=== PATIENT | male | born 1955 | race Caucasian/White ===

== ENCOUNTER 2019-09-30 16:07 | Outpatient (CLI) | payer MEDICAID, SELFPAY ==
--- NOTE | 2019-10-04 17:53 | ONC FU_ITS ---
Dr. Berry Patient Follow-Up Note Patient: Cholo Aden Unit #: [id number]: 1955 Dicatated By: Keon Berry M.D.Date of Visit:Sep 30, 2019 Telehealth Progress Note The patient has been informed that the visit may not be secure and acknowledged the information. I have explained the option of participating in a telephone or video visit during the [facility] emergency to the patient. After being given an opportunity to ask questions about and discuss this type of visit, the patient verbally consented to proceeding with the telephone/video visit. the patient understands that this service replaces an office visit and they may be billed and /or responsible for any applicable copayments Chief Complaint: Colon cancer/secondary polycythemia. History of Present Illness: This is a 64 year-old man with multiple colon cancers in association with MUTYH-associated polyposis. He also has been diagnosed with secondary polycythemia. He had been seen here by Dr. Valeria Perez on 07/17/2013 after having undergone total colectomy with ileorectal anastomosis on 08/28/2012 for carcinoma involving the transverse colon. The procedure also included repair of ventral hernia with mesh. It was complicated by intra-abdominal hemorrhage, requiring exploratory laparotomy on 08/30/2012. Pathology showed moderately differentiated adenocarcinoma with invasion through the muscularis propria with focal invasion of the mesocolonic adipose tissue. Margins were uninvolved. There was no involvement in 28 lymph nodes. Final staging was IIA (T3, N0, M0). He received no adjuvant therapy. He had previously undergone sigmoid colon resection in 1997 and a right colon resection in 2003 for colon cancers. Both of those procedures had been done in [facility] and records were not available. He received no adjuvant therapy. His CT abdomen/pelvis on 07/29/2013 showed a mosaic perfusion pattern of the lower lungs, consistent with airway disease. There was increase in size of a right lower abdominal mesenteric mass, consistent with desmoid tumor or carcinoid. There was no evidence of metastatic involvement. On his subsequent surveillance CT scans the mesenteric mass remained stable. On a repeat study from 04/27/2018, the mass measured 12 x 10 mm. An additional adjacent satellite lesion along the right psoas muscle measuring 1.7 x 1.5 x 2.2 cm appeared stable compared to the 2017 study. There was enlarged heterogeneously enhancing prostate measuring 4.5 x 3.9 cm. There was again no evidence of metastatic involvement. At the time of his evaluation in June 2013 he also had elevated hemoglobin/hematocrit levels with his CBC showing a hemoglobin of 17.1 g with hematocrit 52.5%. The white blood cell count was 7600 and the platelet count was 163,000. His comprehensive metabolic profile was unremarkable except for elevated nonfasting blood sugar. Serum iron studies showed normal transferrin saturation at 28.9% with ferritin 62.1 ng/mL. LDH was normal 150 U/L. His B12 and folate levels were both borderline low. His CEA was slightly elevated at 5.3 ng/mL. The JAK2 V617F mutation was not detected, and the FISH for BCR/abl was negative. His erythropoietin level was normal at 12 mIU/mL. The findings were consistent with secondary polycythemia. His repeat laboratory studies from 04/03/2018 included CBC showing hemoglobin 18.4 g with hematocrit 55%. The white blood cell count was 7100 and the platelet count was 142,000. Chem profile showed borderline renal function with BUN 9 and creatinine 1.23 mg/dL. Potassium was slightly high at 5.6 mmol/L. The bilirubin and liver enzymes were normal. TSH was normal at 2.940 mIU/mL. The hemoglobin A1c was 7.9%. I had seen him for a followup visit on 05/07/2018. At that point he appeared stable clincally and I recommended continued observation/expectant management. His other medical illnesses include hypertension, hyperlipidemia, type II diabetes, GERD, and benign prostatic hypertrophy. He has a history of nephrolithiasis. He also has a history of portacath associated deep vein thrombosis. He has a history of smoking for 30 years, less than 1 pack of cigarettes daily. He quit smoking 10 years ago. INTERIM HISTORY: I had seen him for a follow-up visit on 08/08/2018. He appeared stable clinically, but his CEA level had increased to 10.0 ng/mL. Restaging CT scans of the chest, abdomen, and pelvis on 08/22/2018 showed stable right lower quadrant and right so as soft tissue masses compared to the prior study from March 2018. There was slight increase, though, compared to the October 2016 study. There was otherwise no evidence of recurrent or metastatic disease. There was groundglass attenuation noted throughout both lungs, consistent with small vessel disease. He continued on observation/expectant management. He is seen for a followup visit by Telehealth. He has been feeling good generally. His energy has been good. He has normal activity. Appetite is good. His weight is stable. He has no fever or night sweats. He has sinus congestion/drainage. It is managed adequately with fluticasone nasal spray. He has cough productive of yellow sputum. He does not have shortness of breath or chest pain. He currently has no GI or complaints. He has some joint pain in his hands and feet. He does not complain of headache, and he has no focal neurologic symptoms. Medications: Aspirin 1 (81 mg) Tablet Oral daily, Cetirizine HCl Tablet Oral PRN, Cholecalciferol 1 (4000 Units) Capsule Oral daily, FeroSul (325 (65 fe) mg) Tablet Oral daily, Finasteride 1 (5 mg) Tablet Oral daily, Fish Oil Concentrate (300 mg) Capsule Oral daily, Fluticasone Propionate 2 spray(s) (of 50 mcg/act) Suspension Nasal daily, Folic Acid 1 (1 mg) Tablet Oral daily, HumaLOG KwikPen Subcutaneous, Lisinopril 1 (10 mg) Tablet Oral daily, Pravastatin Sodium 1 (10 mg) Tablet Oral at bedtime, RaNITidine HCl 1 (150 mg) Tablet Oral b.i.d., Sucralfate 1 (1 G) Tablet Oral t.i.d., Tamsulosin HCl 1 (0.4 mg) Capsule Oral daily, Tresiba FlexTouch 60 Units (of 60 Units - mg/mL) Subcutaneous daily, Vitamin B-Complex 1 Tablet Oral daily Allergies: No Known Allergies. Review of Systems: Constitutional - He has been feeling good. His energy level is good. He does daily exercising and he has normal activity. His appetite is good and weight is stable. No fever, night sweats, or hot flashes. ECOG score is 0, ENMT - He has chronic sinus congestion/drainage. It is adequately managed with daily nasal sprays. No mouth sores. No sore throat. He has some intermittent difficulty swallowing. It is being evaluated by his PCP, Hematologic/Lymphatic - No abnormal bruising or bleeding, Respiratory - No shortness of breath. He has a chronic cough that produces yellow sputum. No pleuritic pain or hemoptysis, Cardiovascular - No angina pain. No palpitations, Gastrointestinal - No nausea or vomiting. No heartburn or acid reflux. No diarrhea or constipation. No blood in the stool or black stools, Genitourinary (M) - No dysuria or hematuria. No urinary frequency. No urgency or incontinence, Musculoskeletal - He is having intermittent pain in his feet. He manages it adequately with Tylenol, Integumentary - No skin complications, Neurologic - No headache or dizziness. No numbness or tingling. No other focal neurologic symptoms, Psychiatric - No anxiety or depression. No insomnia. Physical Examination: Constitutional - He looks pretty good generally. Lab/Imaging: CBC shows hemoglobin 16.9 g with hematocrit 50.5%. The white blood cell count is 9500 and the platelet count is 140,000. Comprehensive metabolic profile shows normal renal function with BUN 10 and creatinine 1.0 mg/dL. The SGOT is minimally elevated at 43/41 U/L. The bilirubin and other liver enzymes are normal. CEA is down slightly at 9.7 ng/mL. Impression: 1. Patient with MUTYH associated polyposis, and he has had multiple colon cancers. 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 He underwent total colectomy with ileorectal anastomosis in 2012. He received no adjuvant therapy. 2. He previous included sigmoid colon resection in 1997 and right colon resection in 2003, both for colon cancer. 3. He has had CT evidence of mesenteric mass consistent with desmoid tumor or carcinoid. 4. He has elevated hemoglobin/hematocrit levels. His previous evaluation was consistent with secondary polycythemia. It is uncertain to what extent it may be due to lung disease or to decreased plasma volume. There have been no findings to suggest polycythemia rubra vera. His other medical illnesses include: 5. Hypertension. 6. Hyperlipidemia. 7. Type II diabetes. 8. GERD. 9. History of nephrolithiasis. 10. He has history of iron deficiency anemia associated with his colon cancer. 11. Benign prostatic hypertrophy. As of his follow-up visit in July 2018 his CEA level had increased significantly, to 10.0 ng/mL. Restaging CT scans showed stable right lower quadrant and right psoas soft tissue masses compared to the March 2018 study. There was a slight increase in size compared to the October 2016 study. He continued observation/expectant management. During subsequent followup his clinical status and CEA have remained stable. Overall, he appears to be doing well with no evidence of recurrence of the colon cancer. Plan: He remains on observation/expectant management. I will see him again in 6 months. Signed By: Keon Berry M.D. <<Signature on File>>
== END 2019-09-30 16:08 | disposition home or self-care (01) ==
LOC: ONCMED 16:08
PROVIDERS: PCP Family Medicine; Visit Provider Internal Medicine Medical Oncology
DX: Z08 Encounter for follow-up examination after completed treatment for malignant neoplasm (principal); Z85.038 Personal history of other malignant neoplasm of large intestine; D75.1 Secondary polycythemia; Z90.49 Acquired absence of other specified parts of digestive tract; I10 Essential (primary) hypertension; E78.5 Hyperlipidemia, unspecified; E11.9 Type 2 diabetes mellitus without complications; K21.9 Gastro-esophageal reflux disease without esophagitis; N40.0 Benign prostatic hyperplasia without lower urinary tract symptoms; Z15.09 Genetic susceptibility to other malignant neoplasm; Z87.442 Personal history of urinary calculi; Z86.2 Personal history of diseases of the blood and blood-forming organs and certain disorders involving the immune mechanism

== ENCOUNTER 2019-10-22 10:47 | Outpatient (CLI) | payer MEDICAID, SELFPAY ==
--- NOTE | 2019-10-22 10:50 | US_ITS ---
WS: [id number] THYROID ULTRASOUND HISTORY: HYPOTHYROID COMPARISON: None available. Right lobe: 4.2 cm x 1.3 cm x 1.5 cm. Volume: 4.0 cm3. Normal size and echotexture. No significant are dominant nodules are present. Left lobe: 3.7 cm x 1.4 cm x 1.5 cm. Volume: 4.1 cm3. Normal size lobe. Small colloid cysts with the largest measuring 5 mm in the superior gland. Isthmus: 0.3 cm. US/US thyroid 31013 IMPRESSION: 1. No suspicious or solid nodule. 2. Subcentimeter colloid cyst LEFT thyroid.
== END 2019-10-22 10:48 | disposition home or self-care (01) ==
LOC: RAD 10:47
PROVIDERS: PCP Internal Medicine; Visit Provider Internal Medicine
DX: E03.9 Hypothyroidism, unspecified (principal); E04.1 Nontoxic single thyroid nodule; C18.9 Malignant neoplasm of colon, unspecified
CPT/HCPCS: 76536; 80053; 82378; 85025

== ENCOUNTER 2020-07-27 13:13 | Outpatient (CLI) | payer MEDICAID, SELFPAY ==
--- NOTE | 2020-07-27 13:24 | CT_ITS ---
WS: [id number] CT ABDOMEN PELVIS TECHNIQUE: Noncontrast CT of the abdomen and pelvis with coronal and sagittal reformatted images. CLINICAL INFORMATION: COLON CANCER COMPARISON: CT DLP: 805.[address] scans at [facility] use at least one of these dose optimization techniques: automat ed exposure control; mA and/or kV adjustment per patient size (includes targeted exams where dose is matched to clinical indication); or iterative reconstruction. FINDINGS: Prior postoperative changes subtotal colectomy with ileal rectosigmoid anastomosis. Again seen is the right lower quadrant soft tissue mass slightly progressed since today measuring 3.2 x 3.4 x 7.1 cm AP by transverse by craniocaudal. By my measurements on November 06, 2018 this measured approximat cedrick 2.5 x 3.1 x 4.8 cm. This directly abuts the right psoas not significantly changed in appearance.S table right mid mesenteric nodule previously described measuring 8 mm is unchanged Noncontrast liver is normal. Cholelithiasis. Noncontrast spleen is normal. Normal GE junction. Slight atelectasis in the lung bases. Adrenal glands are normal. No hydronephrosis. Normal noncontrast panc reas. Mild aortic calcification. Normal caliber abdominal aorta. Mild disc space narrowing L5-S1. No other significant changes from previous. CT/CT abdomen pelvis wo con [id number] IMPRESSION: 1. Soft tissue mass in the right lower quadrant extending along the psoas has progressed slightly since today measuring 3.2 x 3.4 x 7.1 cm AP by enrique sverse by craniocaudal. By my measurements previously measured approximately 2. 5 x 3.1 x 4.8 cm AP by transverse by craniocaudal 2. Stable right mid mesenteric nodule previously described measuring 8 mm is u nchanged 3. No other significant interval change from previous. 4. Cholelithiasis. 5. Prior subtotal colectomy with stable rectosigmoid anastomosis. 6. Diffuse fatty infiltration of the liver. 7. Mild prostate enlargement.
[2020-07-27] MEDS: iohexol 300 mg/mL 50 mL Btl PO (13:25)
== END 2020-07-27 13:14 | disposition home or self-care (01) ==
LOC: RADWPI 13:17
PROVIDERS: PCP Internal Medicine; Visit Provider Internal Medicine
DX: C18.9 Malignant neoplasm of colon, unspecified (principal); N40.0 Benign prostatic hyperplasia without lower urinary tract symptoms; K76.0 Fatty (change of) liver, not elsewhere classified; K63.89 Other specified diseases of intestine; K80.20 Calculus of gallbladder without cholecystitis without obstruction
CPT/HCPCS: 74176; Q9967

== ENCOUNTER 2020-07-29 13:47 | Outpatient (CLI) | payer MEDICAID, SELFPAY ==
[2020-07-29 14:41] LABS: Basophils # 0.1 10^3/uL (0.0-0.1); Basophils % 0.6 %; Eosinophils # 0.4 10^3/uL (0.0-0.8); Eosinophils % 4.2 %; Hematocrit 45.3 % (42.0-52.0); Hemoglobin 14.7 g/dL (11.7-16.6); Lymphocytes # 2.1 10^3/uL (0.8-4.8); Lymphocytes % 24.6 %; Mean Corpuscular HGB Conc 32.5 g/dL (30.0-36.0); Mean Corpuscular Hemoglobin 27.8 pg (28.0-34.0); Mean Corpuscular Volume 85.8 fL (80-94); Mean Platelet Volume 10.4 fL (7.4-10.4); Monocytes # 0.7 10^3/uL (0.2-0.9); Monocytes % 8.2 %; Neutrophils % 61.9 %; Nucleated Red Blood Cells % 0 %; Platelet Count 212 10^3/cmm (130-400); Red Blood Count 5.28 10^6/uL (4.1-5.3); Red Cell Distribution Width 12.9 % (12.1-15.1); White Blood Count 8.4 10^3/uL (4.0-10.0)
[2020-07-29 15:06] LABS: Alanine Aminotransferase 13 U/L (0-41); Albumin Level 3.6 g/dL (3.5-5.2); Alkaline Phosphatase 89 IU/L (40-130); Anion Gap 13.8 (5-19); Aspartate Amino Transferase 12 U/L (0-40); Blood Urea Nitrogen 10 mg/dL (8-23); Calcium 9.3 mg/dL (8.5-10.5); Carbon Dioxide 22 mmol/L (22-29); Chloride 102 mmol/L (98-107); Globulin 3.5 g/dL (1.3-4.6); Glomerular Filtration Rate 75.5 mL/min (90-130); Glucose 267 mg/dL (65-115); Osmolality Calculated 284 mOsm/kg (285-295); Potassium 4.8 mmol/L (3.5-5.1); Sodium 133 mmol/L (136-145); Total Bilirubin 0.2 mg/dL (0.15-1.2); Total Protein 7.1 g/dL (6.6-8.7)
--- NOTE | 2020-07-29 17:10 | ONC FU_ITS ---
Dr. Berry Patient Follow-Up Note Patient: Cholo Aden Unit #: [id number]: 1955 Dicatated By: Keon Berry M.D.Date of Visit:Jul 29, 2020 Onc Med Follow-up/Prog Note Chief Complaint: Colon cancer/secondary polycythemia. History of Present Illness: This is a 65 year-old man with multiple colon cancers in association with MUTYH-associated polyposis. He also has been diagnosed with secondary polycythemia. He had been seen here by Dr. Valeria Perez on 07/17/2013 after having undergone total colectomy with ileorectal anastomosis on 08/28/2012 for carcinoma involving the transverse colon. The procedure also included repair of ventral hernia with mesh. It was complicated by intra-abdominal hemorrhage, requiring exploratory laparotomy on 08/30/2012. Pathology showed moderately differentiated adenocarcinoma with invasion through the muscularis propria with focal invasion of the mesocolonic adipose tissue. Margins were uninvolved. There was no involvement in 28 lymph nodes. Final staging was IIA (T3, N0, M0). He received no adjuvant therapy. He had previously undergone sigmoid colon resection in 1997 and a right colon resection in 2003 for colon cancers. Both of those procedures had been done in [facility] and records were not available. He received no adjuvant therapy. His CT abdomen/pelvis on 07/29/2013 showed a mosaic perfusion pattern of the lower lungs, consistent with airway disease. There was increase in size of a right lower abdominal mesenteric mass, consistent with desmoid tumor or carcinoid. There was no evidence of metastatic involvement. At the time of his evaluation in June 2013 he also had elevated hemoglobin/hematocrit levels with his CBC showing a hemoglobin of 17.1 g with hematocrit 52.5%. The white blood cell count was 7600 and the platelet count was 163,000. His comprehensive metabolic profile was unremarkable except for elevated nonfasting blood sugar. Serum iron studies showed normal transferrin saturation at 28.9% with ferritin 62.1 ng/mL. LDH was normal 150 U/L. His B12 and folate levels were both borderline low. His CEA was slightly elevated at 5.3 ng/mL. The JAK2 V617F mutation was not detected, and the FISH for BCR/abl was negative. His erythropoietin level was normal at 12 mIU/mL. The findings were consistent with secondary polycythemia. On his subsequent surveillance CT scans the mesenteric mass remained stable. On a repeat study from 04/27/2018, the mass measured 12 x 10 mm. An additional adjacent satellite lesion along the right psoas muscle measuring 1.7 x 1.5 x 2.2 cm appeared stable compared to the 2016 study. There was enlarged heterogeneously enhancing prostate measuring 4.5 x 3.9 cm. There was again no evidence of metastatic involvement. I had seen him for a follow-up visit on 08/08/2018. He appeared stable clinically, but his CEA level had increased to 10.0 ng/mL. Restaging CT scans of the chest, abdomen, and pelvis on 08/22/2018 showed stable right lower quadrant and right psoas soft tissue masses compared to the prior study from March 2018. There was slight increase, though, compared to the October 2016 study. There was otherwise no evidence of recurrent or metastatic disease. There was groundglass attenuation noted throughout both lungs, consistent with small vessel disease. He continued on observation/expectant management. His other medical illnesses include hypertension, hyperlipidemia, type II diabetes, GERD, and benign prostatic hypertrophy. He has a history of nephrolithiasis. He also has a history of portacath associated deep vein thrombosis. He has a history of smoking for 30 years, less than 1 pack of cigarettes daily. He quit smoking 10 years ago. INTERIM HISTORY: As of his follow-up visit in August 2019 he appeared stable clinically, and his CEA remained stable at 9.7 ng/mL. He had seen Dr. Byrd for a follow-up visit on 06/29/2020. At that time he complained of left lower quadrant abdominal pain. CEA had come down a little, to 8.6 ng/mL. His repeat CT abdomen/pelvis on 07/27/2020 showed slight progression of the soft tissue mass in the right lower quadrant extending along the psoas muscle measuring 3.2 x 3.4 x 7.1 cm compared to 2.5 x 3.1 x 4.8 cm in October 2018. A right mid mesenteric nodule remained stable measuring 8 mm. There were no other interval changes. He is seen for a follow-up visit. For the past 3 months he has been having abdominal pain in the left lower quadrant area. It is fairly constant but it gets worse after he eats. He also has been feeling more tired. He does quite a bit of walking, but he otherwise does not have much activity. ECOG score is 2. His appetite has not been as good and his weight is down about 5 pounds. He does not have fever or night sweats. He has no shortness of breath, cough, or chest pain. He has not been having nausea. He does report having gas problems and acid symptoms. These have persisted despite treatment with a PPI. Bowel function has been okay, though he has tended to have 3-4 loose stools daily since his colectomy. He has no complaints. He has pain in his knees and legs. He sometimes has headache. He has no focal neurologic symptoms. Medications: Aspirin 1 (81 mg) Tablet Oral daily, Cetirizine HCl Tablet Oral PRN, Cholecalciferol 1 (4000 Units) Capsule Oral daily, FeroSul (325 (65 fe) mg) Tablet Oral daily, Finasteride 1 (5 mg) Tablet Oral daily, Fish Oil Concentrate (300 mg) Capsule Oral daily, Fluticasone Propionate 2 spray(s) (of 50 mcg/act) Suspension Nasal daily, Folic Acid 1 (1 mg) Tablet Oral daily, HumaLOG KwikPen Subcutaneous, Lisinopril 1 (10 mg) Tablet Oral daily, Pravastatin Sodium 1 (10 mg) Tablet Oral at bedtime, RaNITidine HCl 1 (150 mg) Tablet Oral b.i.d., Sucralfate 1 (1 G) Tablet Oral t.i.d., Tamsulosin HCl 1 (0.4 mg) Capsule Oral daily, Tresiba FlexTouch 60 Units (of 60 Units - mg/mL) Subcutaneous daily, Vitamin B-Complex 1 Tablet Oral daily Allergies: No Known Allergies. Vital Signs: Performed on Jul 29, 2020 15:21 Height - 68.00 in Weight - 170.2 lbs (LOW) BSA - 1.91 sq.m BMI - 25.88 Temperature - 97.0 F (LOW) Pulse - 66 /min Respiration - 18 /min BP - 112/72 mm(hg) O2 Sat - 98 % Pain - 7 Fatigue - 7 Physical Examination: Constitutional - He looks pretty good generally, Eyes - Sclerae nonicteric. Conjunctivae clear, ENMT - No lesions noted in the oral cavity, Hematologic/Lymphatic - No cervical, clavicular, or axillary adenopathy, Respiratory - Lungs are clear with good air movement bilaterally, Cardiovascular - Heart rhythm is regular. There is no murmur, gallop, or rub noted, Abdomen - Mildly distended but soft. Liver and spleen are not enlarged. There is no abdominal mass or ascites noted and there is no inguinal adenopathy, Extremities - No edema, Neurologic - No focal neurologic deficits noted. Lab/Imaging: Test performed on Jun 29, 2020 08:35 Cholesterol, Total 146 mg/dL Glucose 152 mg/dL BUN 11 mg/dL HDL Cholesterol 35 mg/dL Creatinine 1.30 mg/dL LDL Cholesterol 87 mg/dL Cr Clearance (Est) 67.28 mL/min VLDL Cholesterol 24 mg/dL Triglycerides 136 mg/dL Sodium 136 mmol/L Potassium 5.5 mmol/L Chloride 102 mmol/L CO2 20 mmol/L Calcium 9.7 mg/dL Protein, Total 7.2 g/dL Albumin 4.2 g/dL Globulin 3.0 g/dL Bilirubin, Total 0.4 mg/dL Alkaline Phosphatase 83 IU/L AST (SGOT) 14 IU/L ALT (SGPT) 13 IU/L Hemoglobin A1C 8.4 % WBC 9.0 10^9/L RBC 5.72 10^12/L HGB 16.0 g/dL HCT 48.6 % MCV 85 fl MCH 28.0 pg MCHC 32.9 g/dL RDW 13.1 % Platelet Count 203 10^9/L Neutrophils (Gran) 5.4 10^9/L Lymphocytes 2.3 10^9/L Monocytes 1.1 10^9/L Eosinophils 0.2 10^9/L Basophils 0.1 10^9/L Manual Lymphocytes 25 % Manual Monocytes 12 % Manual Eosinophils 3 % Manual Basophils 1 % CEA 8.6 ng/mL Problem List: 1. Patient with MUTYH associated polyposis and multiple colon cancers. He underwent sigmoid colon resection for colon cancer in 1997 and right colon resection for colon cancer in 2003. 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 He received no adjuvant therapy. 2. He had CT evidence of mesenteric mass which was felt to be consistent with desmoid tumor or carcinoid. 3. He had elevated hemoglobin/hematocrit levels. His evaluation was consistent with secondary polycythemia. 4. Hypertension. 5. Hyperlipidemia. 6. Type II diabetes. 7. GERD. 8. History of nephrolithiasis. 9. He has history of iron deficiency anemia associated with his colon cancer. 10. Benign prostatic hypertrophy. Problems Addressed with this Encounter and Plan: 1. Patient with MUTYH associated polyposis and multiple colon cancers. He underwent sigmoid colon resection in 1997 and right colon resection in 2003. 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 He received no adjuvant therapy. He had CT evidence of mesenteric mass which was initially felt to be consistent with desmoid tumor or carcinoid. He was followed expectantly. As of his follow-up visit in July 2018 his CEA level had increased significantly, to 10.0 ng/mL. Restaging CT scans showed stable right lower quadrant and right psoas soft tissue masses compared to a March 2018 study. There was a slight increase in size compared to the October 2016 study. During subsequent followup his CEA levels have remained stable. His clinical status had previously been stable, but for the past 3 months he has had persistent abdominal pain in the left lower quadrant area. His current CT scan does show some increase in the right lower quadrant soft tissue mass extending along the psoas muscle. It is uncertain to what extent the mass may be associated with his pain. However, it does appear more suspicious now for a slow-growing tumor. As such, he will be scheduled for restaging PET/CT. He will have further evaluation as indicated. 2. He has had elevated hemoglobin/hematocrit levels. His previous evaluation was consistent with secondary polycythemia, though it was uncertain to what extent it may have been due to lung disease or to decreased plasma volume. There were no findings to suggest polycythemia rubra vera. His recent blood counts have been in normal range. It will just be followed expectantly. Signed By: Keon Berry M.D. <<Signature on File>>
[2020-07-29 21:38] LABS: Carcinoembryonic Antigen 8.7 ng/mL (0.0-4.7)
== END 2020-07-29 13:48 | disposition home or self-care (01) ==
PROVIDERS: PCP Internal Medicine; Visit Provider Internal Medicine Medical Oncology
DX: C18.4 Malignant neoplasm of transverse colon (principal); D75.1 Secondary polycythemia; D69.6 Thrombocytopenia, unspecified; I82.729 Chronic embolism and thrombosis of deep veins of unspecified upper extremity; I10 Essential (primary) hypertension; E78.5 Hyperlipidemia, unspecified; E11.9 Type 2 diabetes mellitus without complications; K21.9 Gastro-esophageal reflux disease without esophagitis; D50.9 Iron deficiency anemia, unspecified; N40.0 Benign prostatic hyperplasia without lower urinary tract symptoms; Z79.899 Other long term (current) drug therapy
CPT/HCPCS: 36415; 80053; 82378; 85025; 99214

== ENCOUNTER 2020-12-03 15:21 | Outpatient (CLI) | payer MEDICAID, SELFPAY ==
--- NOTE | 2020-12-03 15:49 | XR_ITS ---
WS: [id number] CERVICAL SPINE TECHNIQUE: 3 views of the cervical spine CLINICAL INFORMATION: CERVICALGIA COMPARISON: None. FINDINGS: Straightening of the normal cervical lordosis. Mild spondylitic changes. Disc space narrowing worse a t C4-C5 and C5-C6. Normal prevertebral soft tissues. Normal C1-articulation. Moderate facet arthropat hy in the mid cervical spine. XR/XR cervical spine 3V* [id number] IMPRESSION: Straightening of the normal cervical lordosis with mild spondylitic changes.
== END 2020-12-03 15:22 | disposition home or self-care (01) ==
PROVIDERS: PCP Internal Medicine; Visit Provider Internal Medicine
DX: M54.2 Cervicalgia (principal)
CPT/HCPCS: 72040

== ENCOUNTER 2020-12-03 16:07 | Outpatient (CLI) | payer MEDICAID, SELFPAY ==
--- NOTE | 2020-12-03 16:25 | MR_ITS ---
WS: [id number] MRI LEFT SHOULDER HISTORY: SHOULDER PAIN, LEFT COMPARISON: 10/19/2009 TECHNIQUE: Multiplanar sequences of the shoulder joint are submitted. Mild AC joint hypertrophy. Mild thickening of the joint capsule on the AC joint with mild hypertrophi c bone changes involving the clavicle and acromion. Very slight encroachment and displacement of the supraspinatus muscle. There is a small amount of fluid in the subacromial and subdeltoid bursa. Bicep s tendon remains in normal position. No os acromion. Rotator cuff tendons are intact. No tears are identified. Tendinopathy described on the prior examina tion in the supraspinatus tendon from 2009 has resolved. There is a very small amount of increased si gnal in the distal supraspinatus tendon. No muscle atrophy or edema. There is mild thickening of the subscapularis tendon and increased signal from mild tendinopathy. Subscapularis tendon is being sligh tly displaced by an osteophyte at the humeral head. Mild narrowing of the glenohumeral joint with mild loss of cartilage. No labral tears. MR/MR shoulder LT wo con* [id number] IMPRESSION: 1. 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 2. Interval resolution of the distal supraspinatus tendinopathy since 2009. 3. Mild distal subscapularis tendinopathy but no tear. Osteophyte from the hum eral head is displacing the subscapularis tendon. 4. Mild glenohumeral joint narrowing.
== END 2020-12-03 16:08 | disposition home or self-care (01) ==
LOC: RADSHAW 16:12
PROVIDERS: PCP Internal Medicine; Visit Provider Nurse Practitioner Family
DX: M19.012 Primary osteoarthritis, left shoulder (principal); M25.712 Osteophyte, left shoulder
CPT/HCPCS: 73221

== ENCOUNTER 2020-12-25 14:43 | Outpatient (CLI) | payer MEDICAID, SELFPAY ==
[2020-12-25 15:36] LABS: Blood Urea Nitrogen 13 mg/dL (8-23); Calcium 9.2 mg/dL (8.5-10.5); Carbon Dioxide 19 mmol/L (22-29); Chloride 102 mmol/L (98-107); Glomerular Filtration Rate 75.5 mL/min (90-130); Glucose 86 mg/dL (65-115); Osmolality Calculated 279 mOsm/kg (285-295); Sodium 135 mmol/L (136-145)
[2020-12-25 15:37] LABS: Anion Gap 18.6 (5-19); Potassium 4.6 mmol/L (3.5-5.1)
== END 2020-12-25 14:44 | disposition home or self-care (01) ==
PROVIDERS: PCP Internal Medicine; Visit Provider Internal Medicine Infectious Disease
DX: K65.1 Peritoneal abscess (principal)
CPT/HCPCS: 80048

== ENCOUNTER 2020-12-29 07:40 | Outpatient (CLI) | payer MEDICAID, SELFPAY ==
--- NOTE | 2020-12-29 07:47 | US_ITS ---
WS: [id number] ULTRASOUND SOFT TISSUES LEFT neck HISTORY: Swelling, mass OR LUMP IN CHEST/SWELLING NECK COMPARISON: None available. TECHNIQUE: 2-D and color Doppler imaging is submitted. Ultrasound is performed over the LEFT neck in the area of concern. No mass or nodules identified. The soft tissues appear normal. No fluid. US/US soft tissue/extremity [id number] IMPRESSION: Normal soft tissue ultrasound LEFT neck into the upper chest.
== END 2020-12-29 07:41 | disposition home or self-care (01) ==
LOC: US 07:42
PROVIDERS: PCP Internal Medicine; Visit Provider Nurse Practitioner Family
DX: R22.2 Localized swelling, mass and lump, trunk (principal)
CPT/HCPCS: 76882

== ENCOUNTER 2021-01-25 09:14 | Outpatient (CLI) | payer MEDICAID, SELFPAY ==
[2021-01-25 10:11] LABS: Alanine Aminotransferase 41 U/L (0-41); Albumin Level 3.8 g/dL (3.5-5.2); Alkaline Phosphatase 94 IU/L (40-130); Anion Gap 16.8 (5-19); Aspartate Amino Transferase 30 U/L (0-40); Blood Urea Nitrogen 11 mg/dL (8-23); Calcium 9.8 mg/dL (8.5-10.5); Carbon Dioxide 19 mmol/L (22-29); Chloride 103 mmol/L (98-107); Globulin 3.1 g/dL (1.3-4.6); Glomerular Filtration Rate 55.8 mL/min (90-130); Glucose 140 mg/dL (65-115); Osmolality Calculated 280 mOsm/kg (285-295); Potassium 4.8 mmol/L (3.5-5.1); Sodium 134 mmol/L (136-145); Total Bilirubin 0.2 mg/dL (0.15-1.2); Total Protein 6.9 g/dL (6.6-8.7)
== END 2021-01-25 09:15 | disposition home or self-care (01) ==
LOC: LAB 09:19
PROVIDERS: PCP Internal Medicine; Visit Provider Internal Medicine Infectious Disease
DX: K65.1 Peritoneal abscess (principal); D69.6 Thrombocytopenia, unspecified; E11.9 Type 2 diabetes mellitus without complications; I10 Essential (primary) hypertension; K21.9 Gastro-esophageal reflux disease without esophagitis; J43.9 Emphysema, unspecified
CPT/HCPCS: 80053

== ENCOUNTER 2021-03-10 11:17 | Outpatient (CLI) | payer MEDICAID, SELFPAY ==
[2021-03-10 11:56] LABS: Basophils % 0.8 %; Eosinophils # 0.3 10^3/uL (0.0-0.8); Hematocrit 44.5 % (42.0-52.0); Hemoglobin 14.6 g/dL (11.7-16.6); Lymphocytes # 1.8 10^3/uL (0.8-4.8); Lymphocytes % 34.8 %; Mean Corpuscular HGB Conc 32.8 g/dL (30.0-36.0); Mean Corpuscular Hemoglobin 28.2 pg (28.0-34.0); Mean Corpuscular Volume 86.1 fl (80-94); Mean Platelet Volume 11.7 fL (7.4-10.4); Monocytes # 0.5 10^3/uL (0.2-0.9); Neutrophils # 2.62 10^3/uL (1.8-7.7); Nucleated Red Blood Cells % 0 %; Platelet Count 180 10^3/cmm (130-400); Red Blood Count 5.17 10^6/uL (4.1-5.3); Red Cell Distribution Width 13.4 % (12.1-15.1); White Blood Count 5.2 10^3/uL (4.0-10.0)
[2021-03-10 13:41] LABS: Chloride 101 mmol/L (98-107); Potassium 4.3 mmol/L (3.5-5.1)
[2021-03-10 13:42] LABS: Anion Gap 13.3 (5-19); Blood Urea Nitrogen 8 mg/dL (8-23); Carbon Dioxide 24 mmol/L (22-29); Glomerular Filtration Rate 97.6 mL/min (90-130); Glucose 89 mg/dL (65-115); Osmolality Calculated 276 mOsm/kg (285-295)
[2021-03-10 13:43] LABS: Alanine Aminotransferase 12 U/L (0-41); Aspartate Amino Transferase 15 U/L (0-40); Calcium 9.6 mg/dL (8.5-10.5); Total Bilirubin 0.3 mg/dL (0.15-1.2)
[2021-03-10 13:44] LABS: Albumin Level 3.5 g/dL (3.5-5.2); Alkaline Phosphatase 86 IU/L (40-130); Globulin 3.5 g/dL (1.3-4.6)
[2021-03-10 13:50] LABS: Sodium 134 mmol/L (136-145)
== END 2021-03-10 11:18 | disposition home or self-care (01) ==
PROVIDERS: PCP Internal Medicine; Visit Provider Internal Medicine
DX: L02.818 Cutaneous abscess of other sites (principal); E11.9 Type 2 diabetes mellitus without complications; I10 Essential (primary) hypertension; K21.9 Gastro-esophageal reflux disease without esophagitis; J43.9 Emphysema, unspecified
CPT/HCPCS: 80053; 85025

== ENCOUNTER 2021-03-16 09:56 | Outpatient (CLI) | payer MEDICAID, SELFPAY ==
[2021-03-16 10:12] LABS: Basophils # 0.1 10^3/uL (0.0-0.1); Eosinophils # 0.5 10^3/uL (0.0-0.8); Hematocrit 44.2 % (42.0-52.0); Hemoglobin 14.4 g/dL (11.7-16.6); Lymphocytes # 1.9 10^3/uL (0.8-4.8); Lymphocytes % 38.5 %; Mean Corpuscular HGB Conc 32.6 g/dL (30.0-36.0); Mean Corpuscular Hemoglobin 27.9 pg (28.0-34.0); Mean Corpuscular Volume 85.5 fl (80-94); Mean Platelet Volume 11.5 fL (7.4-10.4); Monocytes # 0.4 10^3/uL (0.2-0.9); Monocytes % 8.4 %; Neutrophils # 2.13 10^3/uL (1.8-7.7); Neutrophils % 42.7 %; Nucleated Red Blood Cells % 0 %; Platelet Count 130 10^3/cmm (130-400); Red Blood Count 5.17 10^6/uL (4.1-5.3); Red Cell Distribution Width 13.4 % (12.1-15.1)
[2021-03-16 11:01] LABS: Alanine Aminotransferase 21 U/L (0-41); Albumin Level 3.6 g/dL (3.5-5.2); Alkaline Phosphatase 100 IU/L (40-130); Anion Gap 17.3 (5-19); Aspartate Amino Transferase 18 U/L (0-40); Blood Urea Nitrogen 8 mg/dL (8-23); Calcium 8.8 mg/dL (8.5-10.5); Carbon Dioxide 19 mmol/L (22-29); Chloride 102 mmol/L (98-107); Globulin 3.3 g/dL (1.3-4.6); Glomerular Filtration Rate 75.5 mL/min (90-130); Glucose 152 mg/dL (65-115); Osmolality Calculated 279 mOsm/kg (285-295); Potassium 4.3 mmol/L (3.5-5.1); Sodium 134 mmol/L (136-145); Total Bilirubin 0.3 mg/dL (0.15-1.2); Total Protein 6.9 g/dL (6.6-8.7)
[2021-03-16 11:27] LABS: Absolute Eosinophils 0.4 10^3/cmm (0.0-0.7); Absolute Segmented Neutrophil 2.3 10/cmm (1.6-7.1); Band Neutrophils Absolute 0.2 10^3/cmm (0.0-1.2); Eosinophils 8 %; Lymphocytes 40 %; Lymphocytes Absolute 2.1 10^3/cmm (1.2-3.4); Monocytes Absolute 0.1 10^3/cmm (0.1-0.6); Segmented Neutrophils 45 %; Total Cells Counted 100 (0-100)
[2021-03-16 11:28] LABS: Absolute Neutrophil 2.5 10^3/cmm (1.4-6.5); Platelet Estimate Decreased (Normal)
== END 2021-03-16 09:57 | disposition home or self-care (01) ==
PROVIDERS: PCP Internal Medicine; Visit Provider Internal Medicine
DX: L02.818 Cutaneous abscess of other sites (principal); A49.8 Other bacterial infections of unspecified site; K21.9 Gastro-esophageal reflux disease without esophagitis; E11.9 Type 2 diabetes mellitus without complications; I10 Essential (primary) hypertension; J43.9 Emphysema, unspecified
CPT/HCPCS: 80053; 85007; 85025

== ENCOUNTER 2021-03-24 10:38 | Outpatient (CLI) | payer MEDICAID, SELFPAY ==
[2021-03-24 10:58] LABS: Hematocrit 44.8 % (42.0-52.0); Hemoglobin 14.8 g/dL (11.7-16.6); Mean Corpuscular Hemoglobin 28.4 pg (28.0-34.0); Mean Platelet Volume 11.8 fL (7.4-10.4); Platelet Count 98 10^3/cmm (130-400); Red Blood Count 5.21 10^6/uL (4.1-5.3); White Blood Count 5.1 10^3/uL (4.0-10.0)
[2021-03-24 11:30] LABS: Alanine Aminotransferase 19 U/L (0-41); Albumin Level 3.7 g/dL (3.5-5.2); Alkaline Phosphatase 111 IU/L (40-130); Anion Gap 14.1 (5-19); Aspartate Amino Transferase 18 U/L (0-40); Blood Urea Nitrogen 10 mg/dL (8-23); Calcium 9.1 mg/dL (8.5-10.5); Carbon Dioxide 24 mmol/L (22-29); Chloride 98 mmol/L (98-107); Globulin 3.3 g/dL (1.3-4.6); Glomerular Filtration Rate 75.5 mL/min (90-130); Glucose 148 mg/dL (65-115); Osmolality Calculated 276 mOsm/kg (285-295); Potassium 4.1 mmol/L (3.5-5.1); Sodium 132 mmol/L (136-145); Total Bilirubin 0.5 mg/dL (0.15-1.2)
[2021-03-24 11:44] LABS: Absolute Eosinophils 0.5 10^3/cmm (0.0-0.7); Absolute Neutrophil 2.1 10^3/cmm (1.4-6.5); Band Neutrophils Absolute 0.1 10^3/cmm (0.0-1.2); Eosinophils 10 %; Lymphocytes 44 %; Lymphocytes Absolute 2.2 10^3/cmm (1.2-3.4); Monocytes Absolute 0.3 10^3/cmm (0.1-0.6); Platelet Estimate Decreased (Normal); Segmented Neutrophils 40 %; Total Cells Counted 100 (0-100)
== END 2021-03-24 10:39 | disposition home or self-care (01) ==
PROVIDERS: PCP Internal Medicine; Visit Provider Internal Medicine
DX: E11.9 Type 2 diabetes mellitus without complications (principal); I10 Essential (primary) hypertension; J43.9 Emphysema, unspecified
CPT/HCPCS: 80053; 85007; 85027

== ENCOUNTER 2021-03-30 13:45 | Outpatient (CLI) | payer MEDICAID, SELFPAY ==
[2021-03-30 14:35] LABS: Hematocrit 44.2 % (42.0-52.0); Hemoglobin 14.5 g/dL (11.7-16.6); Mean Corpuscular HGB Conc 32.8 g/dL (30.0-36.0); Mean Corpuscular Hemoglobin 28.2 pg (28.0-34.0); Mean Platelet Volume 11.2 fL (7.4-10.4); Platelet Count 116 10^3/cmm (130-400); Red Blood Count 5.14 10^6/uL (4.1-5.3); White Blood Count 6.2 10^3/uL (4.0-10.0)
[2021-03-30 15:21] LABS: Alanine Aminotransferase 21 U/L (0-41); Albumin Level 3.7 g/dL (3.5-5.2); Alkaline Phosphatase 94 IU/L (40-130); Anion Gap 14.2 (5-19); Aspartate Amino Transferase 19 U/L (0-40); Blood Urea Nitrogen 11 mg/dL (8-23); Calcium 9.6 mg/dL (8.5-10.5); Carbon Dioxide 23 mmol/L (22-29); Chloride 105 mmol/L (98-107); Globulin 3.1 g/dL (1.3-4.6); Glomerular Filtration Rate 75.5 mL/min (90-130); Glucose 55 mg/dL (65-115); Osmolality Calculated 283 mOsm/kg (285-295); Potassium 4.2 mmol/L (3.5-5.1); Sodium 138 mmol/L (136-145); Total Bilirubin 0.3 mg/dL (0.15-1.2); Total Protein 6.8 g/dL (6.6-8.7)
[2021-03-30 15:44] LABS: Absolute Eosinophils 0.4 10^3/cmm (0.0-0.7); Absolute Neutrophil 3.2 10^3/cmm (1.4-6.5); Absolute Segmented Neutrophil 2.5 10/cmm (1.6-7.1); Band Neutrophils Absolute 0.7 10^3/cmm (0.0-1.2); Eosinophils 7 %; Lymphocytes 37 %; Lymphocytes Absolute 2.3 10^3/cmm (1.2-3.4); Monocytes Absolute 0.2 10^3/cmm (0.1-0.6); Platelet Estimate Decreased (Normal); Segmented Neutrophils 41 %; Total Cells Counted 100 (0-100)
== END 2021-03-30 13:46 | disposition home or self-care (01) ==
PROVIDERS: PCP Internal Medicine; Visit Provider Internal Medicine
DX: E11.9 Type 2 diabetes mellitus without complications (principal); I10 Essential (primary) hypertension; J43.9 Emphysema, unspecified
CPT/HCPCS: 80053; 85007; 85027

== ENCOUNTER 2021-04-07 12:37 | Outpatient (CLI) | payer MEDICAID, SELFPAY ==
[2021-04-07 13:18] LABS: Hematocrit 44.7 % (42.0-52.0); Mean Corpuscular HGB Conc 33.6 g/dL (30.0-36.0); Mean Corpuscular Hemoglobin 28.8 pg (28.0-34.0); Mean Platelet Volume 10.9 fL (7.4-10.4); Platelet Count 147 10^3/cmm (130-400); Red Cell Distribution Width 14.1 % (12.1-15.1); White Blood Count 6.1 10^3/uL (4.0-10.0)
[2021-04-07 13:44] LABS: Alanine Aminotransferase 26 U/L (0-41); Albumin Level 3.7 g/dL (3.5-5.2); Alkaline Phosphatase 103 IU/L (40-130); Anion Gap 18.2 (5-19); Aspartate Amino Transferase 22 U/L (0-40); Blood Urea Nitrogen 11 mg/dL (8-23); Calcium 9.3 mg/dL (8.5-10.5); Carbon Dioxide 21 mmol/L (22-29); Chloride 101 mmol/L (98-107); Globulin 3.3 g/dL (1.3-4.6); Glomerular Filtration Rate 75.5 mL/min (90-130); Glucose 107 mg/dL (65-115); Osmolality Calculated 282 mOsm/kg (285-295); Potassium 4.2 mmol/L (3.5-5.1); Sodium 136 mmol/L (136-145); Total Bilirubin 0.3 mg/dL (0.15-1.2)
[2021-04-07 15:19] LABS: Absolute Eosinophils 0.3 10^3/cmm (0.0-0.7); Absolute Segmented Neutrophil 3.1 10/cmm (1.6-7.1); Eosinophils 5 %; Lymphocytes 28 %; Monocytes Absolute 0.2 10^3/cmm (0.1-0.6); Segmented Neutrophils 50 %; Total Cells Counted 100 (0-100)
[2021-04-07 15:20] LABS: Lymphocytes Absolute 2.5 10^3/cmm (1.2-3.4); Platelet Estimate Normal (Normal)
== END 2021-04-07 12:38 | disposition home or self-care (01) ==
PROVIDERS: PCP Internal Medicine; Visit Provider Internal Medicine
DX: E11.9 Type 2 diabetes mellitus without complications (principal); I10 Essential (primary) hypertension; J43.9 Emphysema, unspecified
CPT/HCPCS: 80053; 85007; 85027

== ENCOUNTER 2021-04-14 12:47 | Outpatient (CLI) | payer MEDICAID, SELFPAY ==
[2021-04-14 13:32] LABS: Hematocrit 44.6 % (42.0-52.0); Mean Corpuscular HGB Conc 33.6 g/dL (30.0-36.0); Mean Corpuscular Hemoglobin 28.9 pg (28.0-34.0); Mean Corpuscular Volume 85.9 fl (80-94); Mean Platelet Volume 11.6 fL (7.4-10.4); Platelet Count 145 10^3/cmm (130-400); Red Blood Count 5.19 10^6/uL (4.1-5.3); White Blood Count 6.5 10^3/uL (4.0-10.0)
[2021-04-14 14:02] LABS: Absolute Eosinophils 0.3 10^3/cmm (0.0-0.7); Absolute Neutrophil 3.1 10^3/cmm (1.4-6.5); Absolute Segmented Neutrophil 3.1 10/cmm (1.6-7.1); Band Neutrophils Absolute 0.1 10^3/cmm (0.0-1.2); Eosinophils 5 %; Giant Platelets Trace; Lymphocytes 33 %; Lymphocytes Absolute 2.6 10^3/cmm (1.2-3.4); Monocytes Absolute 0.5 10^3/cmm (0.1-0.6); Platelet Estimate Normal (Normal); Segmented Neutrophils 47 %; Total Cells Counted 100 (0-100)
[2021-04-14 14:05] LABS: Alanine Aminotransferase 23 U/L (0-41); Albumin Level 3.7 g/dL (3.5-5.2); Alkaline Phosphatase 94 IU/L (40-130); Blood Urea Nitrogen 12 mg/dL (8-23); Calcium 9.1 mg/dL (8.5-10.5); Carbon Dioxide 18 mmol/L (22-29); Chloride 102 mmol/L (98-107); Globulin 3.1 g/dL (1.3-4.6); Glomerular Filtration Rate 85.2 mL/min (90-130); Glucose 99 mg/dL (65-115); Osmolality Calculated 276 mOsm/kg (285-295); Sodium 133 mmol/L (136-145); Total Bilirubin 0.2 mg/dL (0.15-1.2); Total Protein 6.8 g/dL (6.6-8.7)
[2021-04-14 14:06] LABS: Anion Gap 17.7 (5-19); Aspartate Amino Transferase 22 U/L (0-40); Potassium 4.7 mmol/L (3.5-5.1)
== END 2021-04-14 12:48 | disposition home or self-care (01) ==
PROVIDERS: PCP Internal Medicine; Visit Provider Internal Medicine
DX: E11.9 Type 2 diabetes mellitus without complications (principal); I10 Essential (primary) hypertension; A49.8 Other bacterial infections of unspecified site
CPT/HCPCS: 80053; 85007; 85027

== ENCOUNTER 2021-06-01 09:54 | Outpatient (CLI) | payer MEDICAID, SELFPAY ==
[2021-06-01 12:18] LABS: Basophils # 0.1 10^3/uL (0.0-0.1); Eosinophils # 0.3 10^3/uL (0.0-0.8); Hemoglobin 14.6 g/dL (11.7-16.6); Lymphocytes # 1.5 10^3/uL (0.8-4.8); Lymphocytes % 29.5 %; Mean Corpuscular HGB Conc 32.4 g/dL (30.0-36.0); Mean Corpuscular Volume 86.4 fl (80-94); Mean Platelet Volume 11.5 fL (7.4-10.4); Monocytes # 0.4 10^3/uL (0.2-0.9); Monocytes % 7.8 %; Neutrophils # 2.83 10^3/uL (1.8-7.7); Neutrophils % 56.3 %; Nucleated Red Blood Cells % 0 %; Platelet Count 214 10^3/cmm (130-400); Red Blood Count 5.21 10^6/uL (4.1-5.3); Red Cell Distribution Width 12.9 % (12.1-15.1)
[2021-06-01 12:52] LABS: Alanine Aminotransferase 15 U/L (0-41); Albumin Level 3.4 g/dL (3.5-5.2); Alkaline Phosphatase 99 IU/L (40-130); Anion Gap 16.2 (5-19); Aspartate Amino Transferase 15 U/L (0-40); Blood Urea Nitrogen 12 mg/dL (8-23); C Reactive Protein 2.3 mg/L (0.0-4.9); Calcium 9.5 mg/dL (8.5-10.5); Carbon Dioxide 18 mmol/L (22-29); Chloride 105 mmol/L (98-107); Globulin 3.2 g/dL (1.3-4.6); Glomerular Filtration Rate 67.6 mL/min (90-130); Glucose 98 mg/dL (65-115); Osmolality Calculated 280 mOsm/kg (285-295); Potassium 4.2 mmol/L (3.5-5.1); Sodium 135 mmol/L (136-145); Total Bilirubin 0.3 mg/dL (0.15-1.2); Total Protein 6.6 g/dL (6.6-8.7)
== END 2021-06-01 09:55 | disposition home or self-care (01) ==
PROVIDERS: PCP Internal Medicine; Visit Provider Internal Medicine
DX: K56.1 Intussusception (principal); E11.9 Type 2 diabetes mellitus without complications; Z15.09 Genetic susceptibility to other malignant neoplasm
CPT/HCPCS: 80053; 85025; 86140

== ENCOUNTER 2021-06-15 09:56 | Outpatient (CLI) | payer MEDICAID, SELFPAY ==
[2021-06-15 10:34] LABS: Basophils # 0.1 10^3/uL (0.0-0.1); Eosinophils # 0.5 10^3/uL (0.0-0.8); Eosinophils % 10.1 %; Hematocrit 45.1 % (42.0-52.0); Hemoglobin 14.9 g/dL (11.7-16.6); Lymphocytes # 1.8 10^3/uL (0.8-4.8); Mean Corpuscular Hemoglobin 28.5 pg (28.0-34.0); Mean Corpuscular Volume 86.2 fl (80-94); Mean Platelet Volume 12.3 fL (7.4-10.4); Monocytes # 0.5 10^3/uL (0.2-0.9); Monocytes % 9.1 %; Neutrophils % 43.6 %; Nucleated Red Blood Cells % 0 %; Platelet Count 103 10^3/cmm (130-400); Red Blood Count 5.23 10^6/uL (4.1-5.3); Red Cell Distribution Width 13.2 % (12.1-15.1); White Blood Count 5.1 10^3/uL (4.0-10.0)
[2021-06-15 11:10] LABS: Alanine Aminotransferase 26 U/L (0-41); Albumin Level 3.9 g/dL (3.5-5.2); Alkaline Phosphatase 137 IU/L (40-130); Anion Gap 15.8 (5-19); Aspartate Amino Transferase 21 U/L (0-40); Blood Urea Nitrogen 12 mg/dL (8-23); Calcium 9.3 mg/dL (8.5-10.5); Carbon Dioxide 21 mmol/L (22-29); Chloride 104 mmol/L (98-107); Glomerular Filtration Rate 61.1 mL/min (90-130); Glucose 118 mg/dL (65-115); Osmolality Calculated 283 mOsm/kg (285-295); Potassium 4.8 mmol/L (3.5-5.1); Sodium 136 mmol/L (136-145); Total Bilirubin 0.3 mg/dL (0.15-1.2); Total Protein 6.9 g/dL (6.6-8.7)
== END 2021-06-15 09:57 | disposition home or self-care (01) ==
PROVIDERS: PCP Internal Medicine; Visit Provider Internal Medicine
DX: K65.1 Peritoneal abscess (principal); E11.9 Type 2 diabetes mellitus without complications; I10 Essential (primary) hypertension
CPT/HCPCS: 80053; 85025; 86140

== ENCOUNTER 2021-06-29 10:42 | Outpatient (CLI) | payer MEDICAID, SELFPAY ==
[2021-06-29 11:19] LABS: Basophils % 0.5 %; Eosinophils # 0.4 10^3/uL (0.0-0.8); Eosinophils % 7.3 %; Hematocrit 44.9 % (42.0-52.0); Lymphocytes # 1.8 10^3/uL (0.8-4.8); Lymphocytes % 33.2 %; Mean Corpuscular HGB Conc 33.4 g/dL (30.0-36.0); Mean Corpuscular Hemoglobin 28.7 pg (28.0-34.0); Mean Platelet Volume 11.9 fL (7.4-10.4); Monocytes # 0.5 10^3/uL (0.2-0.9); Monocytes % 9.2 %; Neutrophils % 49.4 %; Nucleated Red Blood Cells % 0 %; Platelet Count 113 10^3/cmm (130-400); Red Blood Count 5.22 10^6/uL (4.1-5.3); Red Cell Distribution Width 13.4 % (12.1-15.1); White Blood Count 5.5 10^3/uL (4.0-10.0)
[2021-07-01 14:08] LABS: Alanine Aminotransferase 28 U/L (0-41); Albumin Level 3.9 g/dL (3.5-5.2); Alkaline Phosphatase 97 IU/L (40-130); Anion Gap 18.4 (5-19); Aspartate Amino Transferase 22 U/L (0-40); Blood Urea Nitrogen 11 mg/dL (8-23); Calcium 9.8 mg/dL (8.5-10.5); Carbon Dioxide 20 mmol/L (22-29); Chloride 102 mmol/L (98-107); Globulin 3.2 g/dL (1.3-4.6); Glomerular Filtration Rate 67.6 mL/min (90-130); Glucose 81 mg/dL (65-115); Osmolality Calculated 278 mOsm/kg (285-295); Potassium 5.4 mmol/L (3.5-5.1); Sodium 135 mmol/L (136-145); Total Bilirubin 0.2 mg/dL (0.15-1.2); Total Protein 7.1 g/dL (6.6-8.7)
== END 2021-06-29 10:43 | disposition home or self-care (01) ==
LOC: LAB 10:49
PROVIDERS: PCP Internal Medicine; Visit Provider Internal Medicine
DX: K65.1 Peritoneal abscess (principal); E11.9 Type 2 diabetes mellitus without complications
CPT/HCPCS: 80053; 85025; 86140

== ENCOUNTER 2021-07-06 09:45 | Outpatient (CLI) | payer MEDICAID, SELFPAY ==
[2021-07-06 10:18] LABS: Basophils % 0.7 %; Eosinophils # 0.4 10^3/uL (0.0-0.8); Eosinophils % 7.2 %; Hematocrit 45.3 % (42.0-52.0); Hemoglobin 15.1 g/dL (11.7-16.6); Lymphocytes # 2.2 10^3/uL (0.8-4.8); Lymphocytes % 35.5 %; Mean Corpuscular HGB Conc 33.3 g/dL (30.0-36.0); Mean Corpuscular Hemoglobin 28.7 pg (28.0-34.0); Mean Platelet Volume 11.7 fL (7.4-10.4); Monocytes # 0.6 10^3/uL (0.2-0.9); Neutrophils # 2.84 10^3/uL (1.8-7.7); Neutrophils % 46.3 %; Nucleated Red Blood Cells % 0 %; Platelet Count 141 10^3/cmm (130-400); Red Blood Count 5.27 10^6/uL (4.1-5.3); Red Cell Distribution Width 13.4 % (12.1-15.1); White Blood Count 6.1 10^3/uL (4.0-10.0)
[2021-07-06 10:36] LABS: Alanine Aminotransferase 32 U/L (0-41); Albumin Level 3.9 g/dL (3.5-5.2); Alkaline Phosphatase 120 IU/L (40-130); Aspartate Amino Transferase 18 U/L (0-40); Blood Urea Nitrogen 12 mg/dL (8-23); Calcium 10.3 mg/dL (8.5-10.5); Carbon Dioxide 20 mmol/L (22-29); Chloride 102 mmol/L (98-107); Glomerular Filtration Rate 75.5 mL/min (90-130); Glucose 175 mg/dL (65-115); Osmolality Calculated 280 mOsm/kg (285-295); Sodium 133 mmol/L (136-145); Total Bilirubin 0.4 mg/dL (0.15-1.2); Total Protein 6.9 g/dL (6.6-8.7)
[2021-07-06 10:40] LABS: Anion Gap 15.7 (5-19); Potassium 4.7 mmol/L (3.5-5.1)
== END 2021-07-06 09:46 | disposition home or self-care (01) ==
LOC: LAB 09:50
PROVIDERS: PCP Internal Medicine; Visit Provider Internal Medicine
DX: E11.9 Type 2 diabetes mellitus without complications (principal); K65.1 Peritoneal abscess
CPT/HCPCS: 80053; 85025; 86140

== ENCOUNTER 2021-07-13 10:19 | Outpatient (CLI) | payer MEDICAID, SELFPAY ==
[2021-07-13 10:54] LABS: Hematocrit 45.3 % (42.0-52.0); Hemoglobin 15.1 g/dL (11.7-16.6); Mean Corpuscular HGB Conc 33.3 g/dL (30.0-36.0); Mean Corpuscular Hemoglobin 29.2 pg (28.0-34.0); Mean Corpuscular Volume 87.5 fl (80-94); Mean Platelet Volume 11.7 fL (7.4-10.4); Platelet Count 130 10^3/cmm (130-400); Red Blood Count 5.18 10^6/uL (4.1-5.3); Red Cell Distribution Width 13.8 % (12.1-15.1); White Blood Count 6.2 10^3/uL (4.0-10.0)
[2021-07-13 11:14] LABS: Alanine Aminotransferase 40 U/L (0-41); Alkaline Phosphatase 100 IU/L (40-130); Anion Gap 14.5 (5-19); Aspartate Amino Transferase 21 U/L (0-40); Blood Urea Nitrogen 10 mg/dL (8-23); Calcium 9.3 mg/dL (8.5-10.5); Carbon Dioxide 19 mmol/L (22-29); Chloride 106 mmol/L (98-107); Globulin 2.7 g/dL (1.3-4.6); Glomerular Filtration Rate 61.1 mL/min (90-130); Glucose 122 mg/dL (65-115); Osmolality Calculated 280 mOsm/kg (285-295); Potassium 4.5 mmol/L (3.5-5.1); Sodium 135 mmol/L (136-145); Total Bilirubin 0.3 mg/dL (0.15-1.2); Total Protein 6.7 g/dL (6.6-8.7)
[2021-07-13 11:43] LABS: Absolute Eosinophils 0.2 10^3/cmm (0.0-0.7); Absolute Segmented Neutrophil 3.8 10/cmm (1.6-7.1); Band Neutrophils Absolute 0.2 10^3/cmm (0.0-1.2); Eosinophils 4 %; Lymphocytes 27 %; Lymphocytes Absolute 1.7 10^3/cmm (1.2-3.4); Monocytes Absolute 0.1 10^3/cmm (0.1-0.6); Platelet Estimate Normal (Normal); Segmented Neutrophils 61 %; Total Cells Counted 100 (0-100)
== END 2021-07-13 10:20 | disposition home or self-care (01) ==
LOC: LAB 10:27
PROVIDERS: PCP Internal Medicine; Visit Provider Internal Medicine
DX: K65.1 Peritoneal abscess (principal); E11.9 Type 2 diabetes mellitus without complications; I10 Essential (primary) hypertension
CPT/HCPCS: 80053; 85007; 85027; 86140

== ENCOUNTER 2023-08-10 12:41 | Oncology outpatient (recurring) (ONCR) | payer MEDICAID, SELFPAY ==
[2023-08-10 14:31] LABS: Basophils % 0.4 %; Eosinophils # 0.3 10^3/uL (0.0-0.8); Eosinophils % 4.1 %; Lymphocytes # 2.7 10^3/uL (0.8-4.8); Lymphocytes % 32.7 %; Mean Corpuscular HGB Conc 32.6 g/dL (30-55); Mean Corpuscular Hemoglobin 29.6 pg (27-33); Mean Corpuscular Volume 90.9 fl (82-101); Mean Platelet Volume 10.4 fL (7.4-10.4); Monocytes # 0.8 10^3/uL (0.2-0.9); Monocytes % 9.2 %; Neutrophils # 4.35 10^3/uL (1.8-7.7); Neutrophils % 53.4 %; Nucleated Red Blood Cells % 0 %; Platelet Count 146 10^3/cmm (157-399); Red Blood Count 4.73 10^6/uL (3.85-5.65); Red Cell Distribution Width 13.3 % (12.1-15.1); White Blood Count 8.14 10^3/uL (3.29-11.43)
[2023-08-10 14:57] LABS: Carcinoembryonic Antigen 9.2 ng/mL (0.0-4.7)
[2023-08-10 15:08] LABS: Alanine Aminotransferase 24 U/L (0-41); Alkaline Phosphatase 83 U/L (40-130); Aspartate Amino Transferase 18 U/L (0-40); Blood Urea Nitrogen 18 mg/dL (8-23); Calcium 9.4 mg/dL (8.5-10.5); Carbon Dioxide 17 mmol/L (22-29); Chloride 107 mmol/L (98-107); Creatinine Clr Calc Pharmacy 47.9846; Globulin 3.1 g/dL (1.3-4.6); Glomerular Filtration Rate 46.8 mL/min (90-130); Glucose 178 mg/dL (65-115); Osmolality Calculated 286 mOsm/kg (285-295); Sodium 135 mmol/L (136-145); Total Bilirubin 0.3 mg/dL (0.15-1.2); Total Protein 7.1 g/dL (6.6-8.7)
== END 2023-08-29 23:59 | disposition home or self-care (01) ==
PROVIDERS: Internal Medicine; PCP Internal Medicine; Visit Provider Internal Medicine Medical Oncology
DX: C18.9 Malignant neoplasm of colon, unspecified (principal); D13.91 Familial adenomatous polyposis; Z79.899 Other long term (current) drug therapy
CPT/HCPCS: 36415; 80053; 82378; 85025; 99204

== ENCOUNTER 2023-09-05 14:31 | Outpatient (CLI) | payer MEDICAID, SELFPAY ==
--- NOTE | 2023-09-05 14:30 | PETR_ITS ---
PROCEDURE INFORMATION: Exam: PET/CT Skull Base to Mid-thigh Exam date and time: 09/05/2023 2:24 PM Age: 68 years old Clinical indication: Condition or disease; Condition/disease: 2. Extensive hepatic metastatic disease and bulky adenopathy in the upper. Abdomen. History of colon cancer; Additional info: Initial 2. Extensive hepatic metastatic disease and bulky adenopathy in the upper. Abdomen. , Before 08/23 LABS AND CLINICAL REPORTS: Glucose: 202 mg/dl Treatment strategy for malignancy (PET staging): Restaging (PS) TECHNIQUE: Imaging protocol: Following at least four-hour fasting and following the injection of radiopharmaceutical, low dose CT images were obtained. Then, PET images were obtained. Attenuation corrected images were constructed using the CT scan. Fused images of PET and CT were reviewed. The standardized uptake values (SUV) reported below are maximum values within a region of interest, expressed in gm/ml. Exam includes orbital meatal line to mid-thigh. Radiopharmaceutical: 11.2 mCi F-18 FDG (Fluorodeoxyglucose), IV. Time of imaging post radiopharmaceutical administration: 1 hour Injection site: Left hand COMPARISON: PT PET Scan 08/15/2020 10:35 AM FINDINGS: Brain: Visualized brain has normal physiologic uptake. Pharynx: No abnormal uptake. Larynx: No abnormal uptake. Lungs, pleura and trachea: No abnormal uptake. Bilateral atelectasis. Heart: Normal physiologic uptake. Coronary arteries: Moderate coronary artery calcification. Mediastinal space: No abnormal uptake. Liver: No abnormal uptake. No focal CT abnormality visualized. Gallbladder and bile ducts: No abnormal uptake. Prior cholecystectomy. Pancreas: No abnormal uptake. Spleen: No abnormal uptake. Adrenal glands: No abnormal uptake. Kidneys and ureters: Normal physiologic uptake. Stomach and bowel: No abnormal uptake. Stable postsurgical change with rectosigmoid anastomosis. Vasculature: No abnormal uptake. Moderate systemic atherosclerotic calcification without abdominal aortic aneurysm. Lymph nodes: No abnormal uptake. No lymphadenopathy in the head, neck, chest, abdomen, pelvis, and extremities. Bones/joints: No abnormal uptake in the visualized axial and appendicular skeleton. Soft tissues: No abnormal uptake in the visualized head, neck, chest, abdomen, pelvis, and extremities. Anterior abdominal wall postsurgical scarring. PET/PET skulltothigh INITIAL [id number] IMPRESSION: No abnormal radiotracer uptake.
== END 2023-09-05 14:32 | disposition home or self-care (01) ==
LOC: RAD 14:31
PROVIDERS: PCP Internal Medicine; Visit Provider Internal Medicine
DX: C18.9 Malignant neoplasm of colon, unspecified (principal); D13.91 Familial adenomatous polyposis
CPT/HCPCS: 78815; A9552

== ENCOUNTER 2023-09-20 07:56 | Oncology outpatient (recurring) (ONCR) | payer MEDICAID, SELFPAY | END 2023-09-29 23:59 | disposition home or self-care (01) | PROVIDERS: PCP Internal Medicine; Visit Provider Internal Medicine Medical Oncology | DX: Z08 Encounter for follow-up examination after completed treatment for malignant neoplasm (principal); Z85.038 Personal history of other malignant neoplasm of large intestine; D13.91 Familial adenomatous polyposis; Z90.49 Acquired absence of other specified parts of digestive tract | CPT/HCPCS: 99213 ==

== ENCOUNTER 2023-10-24 11:54 | Outpatient (CLI) | payer MEDICAID, SELFPAY ==
--- NOTE | 2023-10-24 12:03 | XR_ITS ---
WS: [id number] Exam: XR shoulder LT min 2V* [id number] Date/Time of Exam: 10/24/2023 12:06 PM Reason For Exam: PAIN IN LEFT SHOULDER Comparison 07/08/2008. The projections of the shoulder reveal no fractures, anomalies, soft tissue swelling, or calcificatio ns. There is normal bony alignment. No irregularity of the bony architecture is noted. XR/XR shoulder LT min 2V* [id number] IMPRESSION: Negative LEFT shoulder.
== END 2023-10-24 11:55 | disposition home or self-care (01) ==
LOC: RAD 11:58
PROVIDERS: PCP Internal Medicine; Visit Provider Internal Medicine
DX: M25.512 Pain in left shoulder (principal)
CPT/HCPCS: 73030

== ENCOUNTER 2024-01-18 08:44 | Oncology outpatient (recurring) (ONCR) | payer MEDICAID, SELFPAY ==
[2024-01-18 09:18] LABS: Basophils % 0.6 %; Eosinophils # 0.4 10^3/uL (0.0-0.8); Eosinophils % 5.9 %; Hematocrit 45.5 % (37-53); Lymphocytes # 1.9 10^3/uL (0.8-4.8); Lymphocytes % 27.8 %; Mean Corpuscular HGB Conc 34.1 g/dL (30-55); Mean Corpuscular Hemoglobin 29.8 pg (27-33); Mean Corpuscular Volume 87.5 fl (82-101); Mean Platelet Volume 11.5 fL (7.4-10.4); Monocytes # 0.6 10^3/uL (0.2-0.9); Monocytes % 7.9 %; Neutrophils # 4.02 10^3/uL (1.8-7.7); Neutrophils % 57.5 %; Nucleated Red Blood Cells % 0 %; Platelet Count 124 10^3/cmm (157-399); Red Cell Distribution Width 12.8 % (12.1-15.1); White Blood Count 6.98 10^3/uL (3.29-11.43)
[2024-01-18 09:45] LABS: Carcinoembryonic Antigen 12.5 ng/mL (0.0-4.7); Free T4 Free Thyroxine 1.15 ng/dL (0.82-1.77); Thyroid Stimulating Hormone 3.09 uIU/mL (0.27-4.20)
[2024-01-18 09:56] LABS: Alanine Aminotransferase 26 U/L (0-41); Albumin Level 3.8 g/dL (3.5-5.2); Alkaline Phosphatase 111 U/L (40-130); Aspartate Amino Transferase 23 U/L (0-40); Blood Urea Nitrogen 19 mg/dL (8-23); Carbon Dioxide 19 mmol/L (22-29); Chloride 101 mmol/L (98-107); Glomerular Filtration Rate 35.6 mL/min (90-130); Glucose 400 mg/dL (65-115); Osmolality Calculated 297 mOsm/kg (285-295); Sodium 134 mmol/L (136-145); Total Bilirubin 0.5 mg/dL (0.15-1.2); Total Protein 6.8 g/dL (6.6-8.7)
== END 2024-01-29 23:59 | disposition home or self-care (01) ==
PROVIDERS: Internal Medicine; PCP Internal Medicine; Visit Provider Internal Medicine Medical Oncology
DX: C18.9 Malignant neoplasm of colon, unspecified (principal)
CPT/HCPCS: 36415; 80053; 82378; 84439; 84443; 85025; 99214

== ENCOUNTER 2024-02-15 12:02 | Outpatient (CLI) | payer MEDICAID, SELFPAY ==
--- NOTE | 2024-02-15 12:08 | CT_ITS ---
WS: [id number] CT ABDOMEN AND PELVIS NONCONTRAST HISTORY: LEFT ABDOMINAL PAIN LOWER QUADRANT, history of colon cancer with resection. TECHNIQUE: Imaging performed through the abdomen and pelvis. Coronal and sagittal reformats are submi tted. All CT scans at [facility] use at least one of these dose optimization techniques: auto mated exposure control; mA and/or kV adjustment per patient size (includes targeted exams where dose is matched to clinical indication); or iterative reconstruction. DLP: 412.39 mGy.cm COMPARISON: 07/27/2020 Lower thorax: Dependent changes at the lung bases. Poor inspiratory effort. Mild cardiomegaly. Modera te pericardial fat. Small hiatal hernia. Liver: Normal size liver. No mass or bile duct dilatation. Gallbladder: Prior cholecystectomy. Pancreas: Normal size and attenuation. Normal pancreatic duct. No pancreatitis or mass. Spleen: Normal. Adrenal glands: Normal. No mass. Right kidney: Normal size kidney with no mass or hydronephrosis. Left kidney: Normal size kidney with no mass or hydronephrosis. Aorta: Moderate to severe atherosclerosis abdominal aorta. No aneurysm. Atherosclerosis continues int o the common iliac arteries. No free fluid, intraperitoneal air or significant lymphadenopathy. GI tract: Stomach is markedly distended with oral contrast. Contrast also proceeds into the small bow el. There is no obstructive pattern. Subtotal colectomy. Surgical anastomosis towards the sigmoid col on is intact. There is very mild irregular wall thickening involving a loop of small bowel deep withi n the midline of the pelvis. The wall of the small bowel loop is very shaggy and irregular but no mas s is evident. This does appear a little more prominent than prior exams. Abdominal wall: Rectus diastases of the abdominal muscles. GI tract abuts the ventral abdominal wall. Pelvis: No free fluid. Urinary bladder is normal. Osseous structures: Unremarkable. CT/CT abdomen pelvis wo con [id number] IMPRESSION: 1. No GI tract obstruction. 2. Status post subtotal colectomy colon resection. 3. No metastatic disease identified on this unenhanced exam in the liver or ad renal glands. 4. Mild irregular wall thickening of a loop of small bowel deep within the pel vis. Very nonspecific at this time. No discrete mass is identified. This area w ill need to have serial imaging surveillance to ensure there is no progression of findings. PET/CT may be of benefit. There was a prior PET/CT done on 4 which was negative.
[2024-02-15] MEDS: iohexol 350 mg/mL 500 mL Btl (per mL) PO (13:09)
== END 2024-02-15 12:03 | disposition home or self-care (01) ==
LOC: RAD 12:02
PROVIDERS: PCP Internal Medicine; Visit Provider Internal Medicine
DX: C18.9 Malignant neoplasm of colon, unspecified (principal); M62.00 Separation of muscle (nontraumatic), unspecified site; R10.32 Left lower quadrant pain; Z98.890 Other specified postprocedural states
CPT/HCPCS: 74176

== ENCOUNTER 2024-03-30 11:51 | Emergency (ER) | payer MEDICAID, SELFPAY ==
[2024-03-30 12:42] VITALS: BP 148/70; PULSE 86; RESP 18; TEMP 36.4; O2SAT 97; BMI 28.7
--- NOTE | 2024-03-30 13:02 | XRR_ITS ---
PROCEDURE INFORMATION: Exam: XR Bilateral Hips Exam date and time: 03/30/2024 1:15 PM Age: 68 years old Clinical indication: Hip pain; Patient HX: Chronic lower back pain with bilateral sciatica, worsening x 1 week TECHNIQUE: Imaging protocol: Radiologic exam of the bilateral hips. Views: 2 views of hips with pelvis when performed. COMPARISON: CT abdomen pelvis wo con [id number] 02/15/2024 1:01 PM FINDINGS: Bones/joints: Alignment is within normal limits. The joint spaces are maintained. No acute fracture or dislocation. No focal lytic or sclerotic lesions. Soft tissues: Unremarkable. Intraperitoneal space: Multiple surgical clips are noted within the pelvis, greater on the left Vasculature: Atherosclerotic vascular calcifications are noted. XR/XR hip BI 3-4V wo/w pel [id number] IMPRESSION: Unremarkable bilateral hips
--- NOTE | 2024-03-30 13:02 | USR_ITS ---
PROCEDURE INFORMATION: Exam: US Duplex Lower Extremity Veins, Bilateral Exam date and time: 03/30/2024 2:24 PM Age: 68 years old Clinical indication: Pain; Leg, lower; Bilateral; Additional info: Bilateral calf pain, swelling, colon cancer history, TECHNIQUE: Imaging protocol: Real-time duplex ultrasound of the bilateral extremities with 2-D bush scale, color Doppler flow and spectral waveform analysis including responses to compression and other maneuvers (when performed) with image documentation. Complete exam focused on the lower extremity veins. COMPARISON: US soft tissue/extremity [id number] 12/29/2020 8:08 AM FINDINGS: Right deep veins: Unremarkable. The common femoral, femoral, proximal profunda femoral and popliteal veins are patent without thrombus. Normal Doppler waveforms. Normal compressibility and/or augmentation response. Left deep veins: Unremarkable. The common femoral, femoral, proximal profunda femoral and popliteal veins are patent without thrombus. Normal Doppler waveforms. Normal compressibility and/or augmentation response. Superficial veins: Greater saphenous veins at the saphenofemoral junctions are patent bilaterally without thrombus. Soft tissues: Unremarkable. US/[place] [id number] IMPRESSION: No evidence of deep vein thrombosis.
--- NOTE | 2024-03-30 13:02 | XRR_ITS ---
PROCEDURE INFORMATION: Exam: XR Lumbosacral Spine Exam date and time: 03/30/2024 1:15 PM Age: 68 years old Clinical indication: Low back pain; Additional info: Low back pain radiculopathy TECHNIQUE: Imaging protocol: Radiologic exam of the lumbosacral spine. Views: 2 or 3 views. COMPARISON: CR XR hip BI 3-4V wo/[place] pel [id number] 03/30/2024 1:15 PM FINDINGS: Bones/joints: There is left convexity lumbar scoliosis. There is grade 1 retrolisthesis of L3 on L4. There is mild disc space narrowing with endplate sclerosis and marginal osteophyte formation at L3-L4, L4-L5 and L5-S1. There is mild facet sclerosis at L4-L5 and L5-S1. Soft tissues: Unremarkable. Intraperitoneal space: Multiple surgical clips are noted within the pelvis, greater on the left Vasculature: Moderate atherosclerotic vascular calcifications XR/XR lumbar spine 2-3V* [id number] IMPRESSION: 1. No acute fracture. 2. Mild degenerative changes at L3-L4, L4-L5 and L5-S1 with grade 1 retrolisthesis of L3 on L4
[2024-03-30 14:10] LABS: Basophils % 0.3 %; Hematocrit 44.8 % (37-53); Lymphocytes # 1.2 10^3/uL (0.8-4.8); Lymphocytes % 16.9 %; Mean Corpuscular HGB Conc 33.7 g/dL (30-55); Mean Corpuscular Volume 86.2 fl (82-101); Mean Platelet Volume 10.7 fL (7.4-10.4); Monocytes # 0.2 10^3/uL (0.2-0.9); Monocytes % 2.5 %; Neutrophils # 5.85 10^3/uL (1.8-7.7); Neutrophils % 79.8 %; Nucleated Red Blood Cells % 0 %; Platelet Count 138 10^3/cmm (157-399); Red Cell Distribution Width 13.1 % (12.1-15.1); White Blood Count 7.33 10^3/uL (3.29-11.43)
--- NOTE | 2024-03-30 14:12 | ED_ITS ---
HPI - Back Pain/Injury 2 General: Chief Complaint: Back Pain/Injury Stated Complaint: low back pain Time Seen by Provider: 03/30/24 12:59 History of Present Illness: Patient presents to the ER with family at bedside. Patient does not speak Khmer however patient's family does quite well. They state that she has had low back pain for about the last month. Sometimes hurts on the left side sometimes hurts on the right side sometimes it hurts down both legs into his calves and his calves hurt the worst. Patient does have a history of colon cancer, and is on no type of anticoagulation. Patient denies any shortness of breath chest pain nausea vomiting diarrhea constipation etc. Related Data Home Medications Medication Instructions Recorded Confirmed atorvastatin 20 mg tablet 20 mg PO DAILY 08/10/23 03/18/24 blood sugar diagnostic (OneTouch #10 ea 08/10/23 03/18/24 Ultra Test strips) cetirizine 10 mg tablet 10 mg PO DAILY 08/10/23 03/18/24 ferrous sulfate 325 mg (65 mg 325 mg PO 08/10/23 03/18/24 iron) tablet,delayed release folic acid 1 mg tablet 1 mg PO 08/10/23 03/18/24 insulin aspart U-100 100 unit/mL SUBCUT 08/10/23 03/18/24 (3 mL) subcutaneous pen insulin glargine 100 unit/mL (3 60 unit SUBCUT 08/10/23 03/18/24 mL) subcutaneous pen (Lantus Solostar U-100 Insulin) lisinopril 10 mg tablet 10 mg PO DAILY 08/10/23 03/18/24 oxybutynin chloride 10 mg 10 mg PO 08/10/23 03/18/24 tablet,extended release 24 hr pen needle, diabetic 32 gauge x #100 ea 08/10/23 03/18/24/ (TechLITE Pen Needle) tamsulosin 0.4 mg capsule 0.4 mg PO 08/10/23 03/18/24 cyanocobalamin (vitamin B-12) mcg PO 01/18/24 03/18/24 1,000 mcg tablet famotidine 20 mg tablet mg PO 01/18/24 03/18/24 finasteride 5 mg tablet mg PO 01/18/24 03/18/24 fluticasone propionate 50 intranasal 01/18/24 03/18/24 mcg/actuation nasal spray,suspension Previous Rx's Medication Instructions Recorded hydrocodone 5 mg-acetaminophen 325 1 tab PO Q6H PRN pain 7 days #21 03/18/24 mg tablet tabs polyethylene glycol 3350 17 17 g PO DAILY 90 days #238 grams 03/18/24 gram/dose oral powder (Miralax) meloxicam 7.5 mg tablet 7.5 mg PO .Twice daily #14 tabs 03/30/24 Allergies Allergy/AdvReac Type Severity Reaction Status Date / Time No Known Allergies Allergy Verified 03/18/24 11:27 Review of Systems 2 General: Reports: 10 or more systems reviewed and unremarkable except in HPI and below PFSH ED 2 PFSH: Medical History Adenocarcinoma, colon 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 Social History Smoking and tobacco/nicotine status: former use of tobacco/nicotine Physical Exam 2 Const: COMMON NORMALS: no acute distress, average body habitus, patient oriented x3, no limitations, healthy appearing, alert and well nourished HENMT: COMMON NORMALS: normocephalic, atraumatic, hearing grossly normal bilaterally, external ears normal and moist oral mucous membranes HEAD & SCALP: normocephalic and atraumatic EXTERNAL EAR: Yes external ears normal Neck/C-Spine: COMMON NORMALS: no JVD Chest: COMMONS NORMALS: normal inspection of the chest and normal palpation of entire chest wall Resp: COMMON NORMALS: normal respiratory effort, No retractions, No use of accessory muscles and clear to auscultation bilaterally AUSCULTATION: clear to auscultation bilaterally Cardio: COMMON NORMALS: no JVD, regular rate, regular rhythm, S1 normal heart sound present, S2 normal heart sound present, No gallops present (Cardio), No clicks present (Cardio), No murmurs present (Cardio) and No rub (Cardio) R ATE: regular rate RHYTHM: regular rhythm HEART SOUNDS: S1 normal heart sound present and S2 normal heart sound present GI: COMMON NORMALS: Normal to inspection, nondistended, normoactive bowel sounds present, Soft to palpation, non-tender, No hepatosplenomegaly present and no masses PALPATION: Yes Soft to palpation and Yes No hepatosplenomegaly present Neuro: COMMON NORMALS: patient oriented x3 SENSORIUM/ORIENTATION: Yes alert Course 2 Vital Signs: Vital signs: Vital Signs Temperature 97.6 F 03/30/24 12:42 Pulse Rate 86 03/30/24 12:42 Respiratory Rate 18 03/30/24 12:42 Blood Pressure 148/70 03/30/24 12:42 Pulse Oximetry 97 03/30/24 12:42 Oxygen Delivery Me thod Room Air 03/30/24 12:42 MDM - Back Pain/Injury Medical Decision Making Lab work showed sodium 129 potassium 5.2 BUN/creatinine 19 and 1.7 which is stable for the patient. X-rays of the hip is unremarkable, x-rays of the lumbar spine show degenerative changes at L3-4 and L4-5 ultrasound of bilateral lower extremities was negative for DVT. These results was discussed with the family. Patient will be given a shot of Toradol here and be prescribed meloxicam in place of the diclofenac. Medical Records I reviewed the patient's medical records. Labs I reviewed the patient's lab results. 03/30/24 13:51 03/30/24 13:51 Radiology Impressions Hip/Pelvis X-Ray 03/30/24 13:02 IMPRESSION: Unremarkable bilateral hips Lumbar Spine X-Ray 03/30/24 13:02 IMPRESSION: 1. No acute fracture. 2. Mild degenerative changes at L3-L4, L4-L5 and L5-S1 with grade 1 retrolisthesis of L3 on L4 Venous Duplex 03/30/24 13:02 IMPRESSION: No evidence of deep vein thrombosis. Laboratory Results WBC 7.33 10^3/uL (3.29-11.43) 03/30/24 13:51 RBC 5.20 10^6/uL (3.85-5.65) 03/30/24 13:51 Hgb 15.10 g/dL (11.27-16.99) 03/30/24 13:51 Hct 44.8 % (37-53) 03/30/24 13:51 MCV 86.2 fl (82-101) 03/30/24 13:51 MCH 29.0 pg (27-33) 03/30/24 13:51 MCHC 33.7 g/dL (30-55) 03/30/24 13:51 RDW 13.1 % (12.1-15.1) 03/30/24 13:51 Plt Count 138 10^3/cmm (157-399) L 03/30/24 13:51 MPV 10.7 fL (7.4-10.4) H 03/30/24 13:51 Neut % (Auto) 79.8 % 03/30/24 13:51 Lymph % (Auto) 16.9 % 03/30/24 13:51 Darke % (Auto) 2.5 % 03/30/24 13:51 Eos % (Auto) 0.0 % 03/30/24 13:51 Baso % (Auto) 0.3 % 03/30/24 13:51 Neut # (Auto) 5.85 10^3/uL (1.8-7.7) 03/30/24 13:51 Lymph # (Auto) 1.2 10^3/uL (0.8-4.8) 03/30/24 13:51 Darke # (Auto) 0.2 10^3/uL (0.2-0.9) 03/30/24 13:51 Eos # (Auto) 0.0 10^3/uL (0.0-0.8) 03/30/24 13:51 Baso # (Auto) 0.0 10^3/uL (0.0-0.1) 03/30/24 13:51 Nucleated RBC % (auto) 0 % 03/30/24 13:51 Nucleated RBCs # 0.0 /100WBC 03/30/24 13:51 Sodium 129 mmol/L (136-145) L 03/30/24 13:51 Potassium 5.2 mmol/L (3.5-5.1) H 03/30/24 13:51 Chloride 99 mmol/L (98-107) 03/30/24 13:51 Carbon Dioxide 18 mmol/L (22-29) L 03/30/24 13:51 Anion Gap 17.2 (5-19) 03/30/24 13:51 BUN 19 mg/dL (8-23) 03/30/24 13:51 Creatinine 1.7 mg/dL (0.7-1.2) H 03/30/24 13:51 GFR Calculation 40.5 mL/min (90-130) L 03/30/24 13:51 Glucose 269 mg/dL (65-115) H 03/30/24 13:51 Calculated Osmolality 280 mOsm/kg (285-295) L 03/30/24 13:51 Calcium 9.3 mg/dL (8.5-10.5) 03/30/24 13:51 Total Bilirubin 0.4 mg/dL (0.15-1.2) 03/30/24 13:51 AST 19 U/L (0-40) 03/30/24 13:51 ALT 26 U/L (0-41) 03/30/24 13:51 Alkaline Phosphatase 99 U/L (40-130) 03/30/24 13:51 C-Reactive Protein 3.0 mg/L (0.0-4.9) 03/30/24 13:51 Total Protein 6.9 g/dL (6.6-8.7) 03/30/24 13:51 Albumin 3.9 g/dL (3.5-5.2) 03/30/24 13:51 Globulin 3.0 g/dL (1.3-4.6) 03/30/24 13:51 All radiology interpretation(s) finalized by discharge Discharge Plan Discharge Patient Disposition: Home Clinical Impression: Lumbar radiculopathy Condition: Stable Prescriptions: New meloxicam 7.5 mg tablet 7.5 mg PO .Twice daily Qty: 14 0RF Discontinued diclofenac sodium 50 mg tablet,delayed release (DR/EC) 50 mg PO DAILY No Action (DME) OneTouch Ultra Test Strip See Rx Instructions .ROUTE .MEDSUPPLY Qty: 10 Rx Instructions: As directed insulin aspart U-100 100 unit/mL (3 mL) insulin pen SUBCUT (DME) pen needle, diabetic [TechLITE Pen Needle] 32 gauge x 1/4 needle See Rx Instructions .ROUTE .MEDSUPPLY Qty: 100 Rx Instructions: As directed atorvastatin 20 mg tablet 20 mg PO DAILY cetirizine 10 mg tablet 10 mg PO DAILY oxybutynin chloride 10 mg tablet extended release 24hr 10 mg PO tamsulosin 0.4 mg capsule 0.4 mg PO lisinopril 10 mg tablet 10 mg PO DAILY insulin glargine [Lantus Solostar U-100 Insulin] 100 unit/mL (3 mL) insulin pen 60 unit SUBCUT folic acid 1 mg tablet 1 mg PO ferrous sulfate 325 mg (65 mg iron) tablet,delayed release (DR/EC) 325 mg PO cyanocobalamin (vitamin B-12) 1,000 mcg tablet PO famotidine 20 mg tablet PO fluticasone propionate 50 mcg/actuation spray,suspension intranasal finasteride 5 mg tablet PO hydrocodone-acetaminophen 5-325 mg tablet 1 tab PO Q6H PRN (Reason: pain) 7 Days Qty: 21 0RF polyethylene glycol 3350 [Miralax] 17 gram/dose powder 17 g PO DAILY 90 Days Qty: 238 0RF Discharge Orders: Discharge ED (Routine); Ordered 03/30/24 Ordered By: Chad Syed Referrals: Sabine Gustafson MD [Primary Care Provider] - 1 week Patient Instructions: Lumbar Radiculopathy (ED), Lower Back Exercises (ED) Activity Restrictions/Additional Instructions: Your x-ray showed you have arthritis in your lower lumbar region this may be causing irritation of the nerve which causes the pain to radiate down your legs. Please stop your diclofenac as a prescription for meloxicam is been sent to your pharmacy please use this in place of the diclofenac. Please follow-up with your family proximal physician within next 7 to 10 days for further evaluation and treatment as needed. Coding Level of Care Code ED [facility] for Waylon Corea
[2024-03-30 14:27] LABS: Alanine Aminotransferase 26 U/L (0-41); Albumin Level 3.9 g/dL (3.5-5.2); Alkaline Phosphatase 99 U/L (40-130); Anion Gap 17.2 (5-19); Aspartate Amino Transferase 19 U/L (0-40); Blood Urea Nitrogen 19 mg/dL (8-23); Calcium 9.3 mg/dL (8.5-10.5); Carbon Dioxide 18 mmol/L (22-29); Chloride 99 mmol/L (98-107); Creatinine Clr Calc Pharmacy 42.6683; Glomerular Filtration Rate 40.5 mL/min (90-130); Glucose 269 mg/dL (65-115); Osmolality Calculated 280 mOsm/kg (285-295); Potassium 5.2 mmol/L (3.5-5.1); Sodium 129 mmol/L (136-145); Total Bilirubin 0.4 mg/dL (0.15-1.2); Total Protein 6.9 g/dL (6.6-8.7)
[2024-03-30 15:31] VITALS: BP 152/69; PULSE 87; O2SAT 98
== END 2024-03-30 15:32 | disposition home or self-care (01) ==
PROVIDERS: Emergency Provider Emergency Medicine; PCP Internal Medicine
DX: M54.16 Radiculopathy, lumbar region (principal); Z79.4 Long term (current) use of insulin; Z87.891 Personal history of nicotine dependence
CPT/HCPCS: 36415; 72100; 73522; 80053; 85025; 86140; 93970; 99284

== ENCOUNTER 2024-05-28 11:28 | Oncology outpatient (recurring) (ONCR) | payer MEDICAID, SELFPAY ==
[2024-05-28 12:26] LABS: Basophils # 0.1 10^3/uL (0.0-0.1); Basophils % 0.6 %; Eosinophils # 0.4 10^3/uL (0.0-0.8); Eosinophils % 4.8 %; Lymphocytes # 2.6 10^3/uL (0.8-4.8); Lymphocytes % 28.5 %; Mean Corpuscular HGB Conc 34.3 g/dL (30-55); Mean Corpuscular Hemoglobin 29.3 pg (27-33); Mean Corpuscular Volume 85.3 fl (82-101); Mean Platelet Volume 10.3 fL (7.4-10.4); Monocytes # 0.9 10^3/uL (0.2-0.9); Monocytes % 9.4 %; Neutrophils # 5.11 10^3/uL (1.8-7.7); Neutrophils % 56.5 %; Nucleated Red Blood Cells % 0 %; Platelet Count 133 10^3/cmm (157-399); Red Blood Count 5.16 10^6/uL (3.85-5.65); Red Cell Distribution Width 13.4 % (12.1-15.1); White Blood Count 9.03 10^3/uL (3.29-11.43)
[2024-05-28 13:00] LABS: Alanine Aminotransferase 25 U/L (0-41); Albumin Level 4.1 g/dL (3.5-5.2); Alkaline Phosphatase 97 U/L (40-130); Anion Gap 16.8 (5-19); Aspartate Amino Transferase 22 U/L (0-40); Blood Urea Nitrogen 15 mg/dL (8-23); Calcium 9.2 mg/dL (8.5-10.5); Carbon Dioxide 19 mmol/L (22-29); Chloride 100 mmol/L (98-107); Globulin 2.8 g/dL (1.3-4.6); Glomerular Filtration Rate 37.9 mL/min (90-130); Glucose 172 mg/dL (65-115); Osmolality Calculated 277 mOsm/kg (285-295); Potassium 4.8 mmol/L (3.5-5.1); Sodium 131 mmol/L (136-145); Total Bilirubin 0.4 mg/dL (0.15-1.2); Total Protein 6.9 g/dL (6.6-8.7)
== END 2024-05-31 23:59 | disposition home or self-care (01) ==
PROVIDERS: Nurse Practitioner; PCP Internal Medicine; Visit Provider Internal Medicine Medical Oncology
DX: Z53.9 Procedure and treatment not carried out, unspecified reason (principal); Z08 Encounter for follow-up examination after completed treatment for malignant neoplasm; Z85.038 Personal history of other malignant neoplasm of large intestine; D13.91 Familial adenomatous polyposis; D75.1 Secondary polycythemia; R14.1 Gas pain; Z87.891 Personal history of nicotine dependence; Z90.49 Acquired absence of other specified parts of digestive tract
CPT/HCPCS: 36415; 80053; 82378; 85025; 99214

== ENCOUNTER 2024-10-31 12:04 | Outpatient (CLI) | payer MEDICAID, SELFPAY ==
--- NOTE | 2024-10-31 12:10 | XR_ITS ---
WS: [id number] XR lumbar spine min 4V [id number] REASON FOR EXAM: DEGENERATIVE DISC DZ W/RADICULOPATHY FINDINGS: Moderate rotatory dextroscoliosis. Relatively normal lordosis. No significant vertebral body abnormality. Mild vertebral body osteophytosis L1-L5. Moderate narrowing of the L1-L2 disc space. Mild narrowing of the L4-L5 disc space. No spondylolysis or significant spondylolisthesis. Normal sacroiliac joints. No sacral insufficiency fractures. XR/XR lumbar spine min 4V [id number] IMPRESSION: Abnormal lumbar spine curvature as above. Mild changes of degenerative spondylosis as above.
== END 2024-10-31 12:05 | disposition home or self-care (01) ==
LOC: RAD 12:05
PROVIDERS: PCP Internal Medicine; Visit Provider Internal Medicine
DX: M51.17 Intervertebral disc disorders with radiculopathy, lumbosacral region (principal); M41.86 Other forms of scoliosis, lumbar region; M48.061 Spinal stenosis, lumbar region without neurogenic claudication
CPT/HCPCS: 72110

== ENCOUNTER 2024-11-20 12:58 | Oncology outpatient (recurring) (ONCR) | payer MEDICAID, SELFPAY ==
[2024-11-20 13:42] LABS: Hematocrit 47.2 % (37-53); Hemoglobin 16.00 g/dL (11.27-16.99); Mean Corpuscular HGB Conc 33.9 g/dL (30-55); Mean Corpuscular Hemoglobin 30.0 pg (27-33); Mean Corpuscular Volume 88.4 fl (82-101); Nucleated Red Blood Cells % 0 %; Platelet Count 127 10^3/cmm (157-399); Red Blood Count 5.34 10^6/uL (3.85-5.65); White Blood Count 9.05 10^3/uL (3.29-11.43)
[2024-11-20 14:05] LABS: Carcinoembryonic Antigen 12.6 ng/mL (0.0-4.7)
[2024-11-20 14:16] LABS: Alanine Aminotransferase 28 U/L (0-41); Albumin Level 3.8 g/dL (3.5-5.2); Alkaline Phosphatase 94 U/L (40-130); Blood Urea Nitrogen 12 mg/dL (8-23); Calcium 9.1 mg/dL (8.5-10.5); Carbon Dioxide 19 mmol/L (22-29); Chloride 103 mmol/L (98-107); Creatinine Clr Calc Pharmacy 47.2134; Globulin 3.0 g/dL (1.3-4.6); Glucose 112 mg/dL (65-115); Osmolality Calculated 281 mOsm/kg (285-295); Sodium 135 mmol/L (136-145); Total Protein 6.8 g/dL (6.6-8.7)
[2024-11-20 14:19] LABS: Anion Gap 17.8 (5-19); Aspartate Amino Transferase 22 U/L (0-40); Potassium 4.8 mmol/L (3.5-5.1)
== END 2024-11-28 23:59 | disposition home or self-care (01) ==
PROVIDERS: PCP Internal Medicine; Visit Provider Internal Medicine
DX: Z08 Encounter for follow-up examination after completed treatment for malignant neoplasm (principal); Z85.038 Personal history of other malignant neoplasm of large intestine; I70.90 Unspecified atherosclerosis; K59.02 Outlet dysfunction constipation; Z87.891 Personal history of nicotine dependence; D13.91 Familial adenomatous polyposis; Z79.899 Other long term (current) drug therapy; Z90.49 Acquired absence of other specified parts of digestive tract
CPT/HCPCS: 36415; 74022; 80053; 82378; 85025; 99213

== ENCOUNTER 2024-12-25 13:42 | Oncology outpatient (recurring) (ONCR) | payer MEDICAID, SELFPAY ==
[2024-12-25 14:03] LABS: Hematocrit 47.6 % (37-53); Hemoglobin 16.10 g/dL (11.27-16.99); Mean Corpuscular HGB Conc 33.8 g/dL (30-55); Mean Corpuscular Hemoglobin 29.9 pg (27-33); Mean Corpuscular Volume 88.5 fl (82-101); Nucleated Red Blood Cells % 0 %; Platelet Count 121 10^3/cmm (157-399); Red Blood Count 5.38 10^6/uL (3.85-5.65); White Blood Count 8.37 10^3/uL (3.29-11.43)
[2024-12-25 14:23] LABS: Alanine Aminotransferase 30 U/L (0-41); Albumin Level 3.8 g/dL (3.5-5.2); Alkaline Phosphatase 95 U/L (40-130); Anion Gap 12.5 (5-19); Aspartate Amino Transferase 23 U/L (0-40); Blood Urea Nitrogen 13 mg/dL (8-23); Calcium 9.0 mg/dL (8.5-10.5); Carbon Dioxide 22 mmol/L (22-29); Chloride 102 mmol/L (98-107); Creatinine Clr Calc Pharmacy 50.7173; Globulin 2.9 g/dL (1.3-4.6); Glucose 261 mg/dL (65-115); Osmolality Calculated 283 mOsm/kg (285-295); Potassium 4.5 mmol/L (3.5-5.1); Sodium 132 mmol/L (136-145); Total Protein 6.7 g/dL (6.6-8.7)
== END 2024-12-29 23:59 | disposition home or self-care (01) ==
LOC: ONCMED 13:42
PROVIDERS: PCP Internal Medicine; Visit Provider Internal Medicine
DX: Z08 Encounter for follow-up examination after completed treatment for malignant neoplasm (principal); Z85.038 Personal history of other malignant neoplasm of large intestine; D13.91 Familial adenomatous polyposis; D69.6 Thrombocytopenia, unspecified; Z87.891 Personal history of nicotine dependence; Z79.899 Other long term (current) drug therapy
CPT/HCPCS: 36415; 80053; 83615; 85025; 99213

== ENCOUNTER 2025-03-05 14:45 | Oncology outpatient (recurring) (ONCR) | payer MEDICAID, SELFPAY | END 2025-03-30 23:59 | disposition home or self-care (01) | PROVIDERS: PCP Internal Medicine; Visit Provider Internal Medicine | DX: Z08 Encounter for follow-up examination after completed treatment for malignant neoplasm (principal); Z85.038 Personal history of other malignant neoplasm of large intestine; D13.91 Familial adenomatous polyposis; Z15.89 Genetic susceptibility to other disease; Z15.068 Genetic susceptibility to other malignant neoplasm of digestive system; K59.00 Constipation, unspecified; Z87.891 Personal history of nicotine dependence | CPT/HCPCS: 99213 ==